=== PATIENT | female | born 1970 | race Caucasian/White ===

== ENCOUNTER 2018-07-26 13:40 | Outpatient (CLI) | payer BC ==
--- NOTE | 2018-07-26 15:16 | MRI ---
LEFT KNEE MRI WITHOUT IV CONTRAST: Date: 07/26/18 HISTORY: 48-year-old female with history of medial meniscal tear left knee following an injury in June with left knee pain. TECHNIQUE: Multiplanar, multisequence MRI examination of the left knee is performed. FINDINGS: There is some slightly altered increased signal within the lateral patellar facet, possibly represent ing some mild chondromalacia patella without significant full thickness cartilage defect. No signific ant abnormal joint effusion. There is a 0.9 x 1.0 x 1.3 cm diameter intraosseous ganglion cyst in the central proximal tibia intercondylar eminence region with some surrounding marrow edema suggesting a ctive reaction changes to the intraosseous cyst. Medial meniscus demonstrates intrasubstance degenera tive signal with slight irregularity of the undersurface of the posterior horn, possibly some focal f raying or subtle undersurface partial thickness tear. The lateral meniscus demonstrates some minimal blunting of the posterior horn, as well as some intrasubstance degenerative signal. Again, this could well represent a subsurface degenerative tear versus focal fraying. Medial and lateral compartment c artilage demonstrates some cartilage loss in the lateral compartment, including a small full thicknes s component in the lateral tibia cartilage. Anterior and posterior cruciate ligaments are intact. The re is some mild associated increased signal within both, evidence for some mucoid degeneration, but w ithout evidence for an acute full thickness tear. Collateral ligament complexes and quadriceps and pa tellar tendons are intact. No acute osteochondral defect. IMPRESSION: 1. Some intrasubstance degenerative signal in both medial and lateral menisci with slight free edge blunting and irregularity, evidence for degenerative tear/focal fraying. 2. Intraosseous ganglion cyst in the proximal tibial intercondylar eminence region with some surroun ding reactive edema. 3. Near full thickness small cartilage defect involving the lateral tibial cartilage. POS: [facility]
== END 2018-07-26 13:41 | disposition home or self-care (01) ==
LOC: SCSMRI 13:40
PROVIDERS: ATTEND Orthopaedic Surgery
DX: S83.241A Other tear of medial meniscus, current injury, right knee, initial encounter (principal); M67.462 Ganglion, left knee